=== PATIENT | female | born 1955 | race Caucasian/White ===

== ENCOUNTER 2018-12-15 08:58 | Emergency (ER) | payer OTHER ==
[2018-12-15 09:39] LABS: Bilirubin Negative (Negative); Blood, Urine Negative (Negative); Clarity Clear (Clear); Glucose, Urine (Dipstick) Negative (Negative); Leukocyte Negative (Negative); Nitrite Negative (Negative); Protein, Urine (Dipstick) Negative (Neg-Trace); Urobilinogen 0.2 mg/dL (0.2-1.0)
--- NOTE | 2018-12-15 10:33 | RAD ---
FExam: 3 views of the lumbosacral spine HISTORY: Low back pain COMPARISON: None FINDINGS: There are 5 lumbar-type vertebra. There is levoscoliosis centered at the L3 vertebral level . There is multilevel moderate disc degenerative disease most pronounced at L2-3 and L3-4. There is m ultilevel moderate facet osteoarthrosis most pronounced at L4-5 and L5-S1. There is mild bilateral SI joint osteoarthrosis. There are surgical clips within the right upper quadrant consistent with a yogesh or cholecystectomy. No acute fracture or subluxation is demonstrated. IMPRESSION: Moderate multilevel spondylosis of the lumbar spine. No acute fracture or subluxation dem onstrated.
[2018-12-15] MEDS ORDERED: HYDROcodone/Acetaminophen 5/325 mg Tablet ONE (10:47)
== END 2018-12-15 10:44 | disposition home or self-care (01) ==
LOC: SCSER 08:58
DX: M54.5 Low back pain (principal); I10 Essential (primary) hypertension; Z79.899 Other long term (current) drug therapy
CPT/HCPCS: 72100; 81003